=== PATIENT | male | born 1965 | race Caucasian/White ===

== ENCOUNTER 2024-08-12 10:43 | Inpatient (IN) | payer OTHER ==
[2024-08-12 11:00] VITALS: BMI 26.7
[2024-08-12] MEDS ORDERED: NALOXONE (NARCAN) HCL 4 MG/0.1 ML SPRAY NS PRN (11:26)
[2024-08-12] MEDS ORDERED: DICYCLOMINE HCL 10 MG CAPSULE PO PRN (11:26)
[2024-08-12] MEDS ORDERED: BENZOCAINE/MENTHOL (CHLORASEPTIC ) LOZENGE MM PRN (11:26)
[2024-08-12] MEDS ORDERED: guaiFENesin 600 MG TABLET.ER (FP) PO PRN (11:26)
[2024-08-12] MEDS ORDERED: NICOTINE POLACRILEX 2 MG LOZENGE BC PRN (11:26)
[2024-08-12] MEDS ORDERED: POLYETHYLENE GLYCOL (HEALTHYLAX) 3350 17 GM PACKET PO PRN (11:26)
[2024-08-12] MEDS ORDERED: MAGNESIUM HYDROX 2400MG/30ML ORAL SUSPENSION 30 ML CUP PO PRN (11:26)
[2024-08-12] MEDS ORDERED: BENZONATATE 200 MG CAPSULE PO PRN (11:26)
[2024-08-12] MEDS ORDERED: MAG HYDROX/AL HYDROX/SIMETH 30 ML UNIT-DOSE CUP PO PRN (11:26)
[2024-08-12] MEDS ORDERED: IBUPROFEN 400 MG TABLET (FP) PO PRN (11:26)
[2024-08-12] MEDS ORDERED: P-EPHED 60MG/TRIPROLIDI 2.5MG TABLET PO PRN (11:26)
[2024-08-12] MEDS ORDERED: IBUPROFEN 600 MG TABLET (FP) PO PRN (11:26)
[2024-08-12] MEDS ORDERED: NICOTINE POLACRILEX 2 MG GUM BUC PRN (11:26)
[2024-08-12] MEDS ORDERED: BISMUTH SUBSALICYLATE 524 MG/30 ML PO PRN (11:26)
[2024-08-12] MEDS ORDERED: ACETAMINOPHEN 325 MG TABLET (FP) PO PRN (11:26)
[2024-08-12] MEDS: METHOCARBAMOL 500 MG TABLET PO PRN (21:47)
[2024-08-12] MEDS: THIAMINE 100 MG TABLET PO SCH (21:47)
[2024-08-12] MEDS: cloNIDine HCL 0.1 MG TABLET PO PRN (21:47)
[2024-08-12] MEDS: ONDANSETRON *ODT* 4 MG TABLET SL PRN (21:47)
[2024-08-12] MEDS: MELATONIN 5 MG TABLETS PO SCH (21:48)
[2024-08-13] MEDS: methaDONE HCL 10 MG TABLET (FOR DETOX USE ONLY) PO ONE (09:26)
[2024-08-13] MEDS: PRENATAL VITAMINS W/ FOLIC ACID TABLET (FP) PO SCH (09:28)
[2024-08-13 10:26] LABS: HEMATOCRIT 37.7 % (40.1-51.0); HEMOGLOBIN 12.3 g/dL (13.7-17.5); MCHC 32.6 g/dl (32.3-36.5); MEAN PLT VOLUME 8.7 fl (9.4-12.4); PLATELET COUNT 399 x10^3/uL (163-337); RDW 13.2 % (12.2-16.1)
[2024-08-13 10:28] LABS: POTASSIUM 3.9 mmol/L (3.5-5.1)
[2024-08-13 10:36] LABS: ALBUMIN 2.6 g/dl (3.4-5.0); CALCIUM 8.6 mg/dL (8.5-10.1)
[2024-08-13 10:37] LABS: BLOOD UREA NITROGEN 12.2 mg/dL (7-18)
[2024-08-13 10:40] LABS: CREATININE 0.8 mg/dL (0.55-1.3)
[2024-08-13 10:41] LABS: BILIRUBIN,TOTAL 0.3 mg/dL (0.2-1); TOT PROT 5.4 g/dl (6.4-8.2)
[2024-08-14] MEDS: ESCITALOPRAM OXALATE 10 MG TABLET PO SCH (10:30)
[2024-08-15] MEDS: methaDONE HCL 10 MG TABLET (FOR DETOX USE ONLY) PO ONE (09:26)
[2024-08-17] MEDS: methaDONE HCL 10 MG TABLET (FOR DETOX USE ONLY) PO ONE (09:26)
[2024-08-17] MEDS: LOPERAMIDE HCL 2 MG CAPSULE PO PRN (13:29)
[2024-08-18 06:37] VITALS: TEMP 97.1
[2024-08-18 09:33] VITALS: BP 118/75; PULSE 68; RESP 18
== END 2024-08-18 12:35 | disposition other institution (70) | DRG 773 ==
LOC: YASAS 10:43 → Y6N 12:59
PROVIDERS: ADMIT Allergy & Immunology; ATTEND Allergy & Immunology
PROC: HZ2ZZZZ Detoxification Services for Substance Abuse Treatment (ICD-10-PCS; principal; 2024-08-12)
DX: F11.23 Opioid dependence with withdrawal (principal); F14.20 Cocaine dependence, uncomplicated; F17.210 Nicotine dependence, cigarettes, uncomplicated; F43.10 Post-traumatic stress disorder, unspecified; F32.A Depression, unspecified
CPT/HCPCS: 0241U-QW; 36415; 80053; 80305; 80307; 85027; 86780; 87811; 93005; 93010; Q0162